=== PATIENT | female | born 1975 | race Caucasian/White ===

== ENCOUNTER 2017-03-03 09:34 | Emergency (ER) | payer SELFPAY ==
[2017-03-03] MEDS ORDERED: Ondansetron 4 MG/2 ML SDV IV ONE (09:35)
[2017-03-03 13:43] LABS: CHLORIDE,CL 102 mmol/L (101-111); SODIUM,NA 135 mmol/L (135-145)
== END 2017-03-03 11:41 ==
LOC: DL.ED 09:34
DX: K52.9 Noninfective gastroenteritis and colitis, unspecified (principal)
CPT/HCPCS: 36415; 80053; 81001; 82150; 83690; 85025; 87804; 96361; 96374; 99284; J2405

== ENCOUNTER 2025-01-03 00:50 | Emergency (ER) | payer BC ==
[2025-01-03] MEDS: Ondansetron 4 MG Tab.DIS PO ONE (01:19)
[2025-01-03 01:26] LABS: BASOPHILS PERCENT AUTO 0.3 % (0.0-1.0); EOSINOPHILS PERCENT AUTO 1.7 % (1.0-3.0); LYMPHOCYTES PERCENT AUTO 22.9 % (20.5-50.1); MONOCYTES PERCENT AUTO 7.1 % (2-8); NEUTROPHILS PERCENT AUTO 68.0 % (42.2-75.2); PLATELET COUNT,PLT 323 10^3/uL (150-450); RED BLOOD CELL COUNT 4.76 10^6/uL (4.2-5.4); WHITE BLOOD CELL COUNT,WBC 15.0 10^3/uL (5.0-10.0)
[2025-01-03 01:28] LABS: APPEARANCE,URINE CLOUDY (CLEAR); GLUCOSE,URINE NEGATIVE (NEGATIVE); OCCULT BLOOD,URINE MODERATE (NEGATIVE)
[2025-01-03 01:36] LABS: SQUAMOUS EPITHELIAL CELLS,UR FEW /HPF (NOT SEEN)
[2025-01-03 01:43] LABS: A/G RATIO 1.0; ALANINE AMINOTRANSFERASE,ALT 23.0 U/L (14-59); ASPARTATE AMNIOTRANSFERASE,AST 12.0 U/L (15-37); BILIRUBIN TOTAL 0.3 mg/dL (0.2-1.0); BLOOD UREA NITROGEN,BUN 8.0 mg/dL (7-18); CARBON DIOXIDE,CO2 29.0 mmol/L (21-32); CHLORIDE,CL 105.0 mmol/L (98-107); CREATININE 0.62 mg/dL (0.55-1.02); EST CRCL DRUG DOSING (CG) 84.65 mL/min; GLUCOSE RANDOM 103.0 mg/dL (70-99); POTASSIUM,K 3.6 mmol/L (3.5-5.1); PROTEIN TOTAL,TP 7.2 g/dL (6.4-8.2); SODIUM,NA 142.0 mmol/L (136-145)
[2025-01-03 01:44] LABS: ESTIMATED GFR 110.0 mL/min (>=60)
[2025-01-03] MEDS ORDERED: cefTRIAXone 1 GM, Lidocaine 1% 2.1 ML IM ONE (01:52)
== END 2025-01-03 02:15 | disposition home or self-care (01) ==
LOC: DL.ED 00:50
DX: K52.9 Noninfective gastroenteritis and colitis, unspecified (principal); N30.00 Acute cystitis without hematuria; Z88.5 Allergy status to narcotic agent; Z79.899 Other long term (current) drug therapy; Z88.8 Allergy status to other drugs, medicaments and biological substances
CPT/HCPCS: 36415; 74019; 80053; 81001; 83735; 85025; 87086; 87088; 87186; 96374; 99284; A9270; J0696

== ENCOUNTER 2025-02-23 06:22 | Emergency (ER) | payer BC ==
[2025-02-23] MEDS: Dexamethasone 4 MG/ML SDV PO ONE (06:45)
[2025-02-23] MEDS: Ondansetron 4 MG Tab.DIS PO ONE (06:46)
[2025-02-23] MEDS: Ketorolac 30 MG/ML SDV IM ONE (07:10)
== END 2025-02-23 08:30 | disposition home or self-care (01) ==
LOC: DL.ED 06:22
DX: K08.89 Other specified disorders of teeth and supporting structures (principal); R42 Dizziness and giddiness; H69.82 Other specified disorders of Eustachian tube, left ear; I10 Essential (primary) hypertension; Z79.899 Other long term (current) drug therapy; Z88.5 Allergy status to narcotic agent; Z88.8 Allergy status to other drugs, medicaments and biological substances; Z88.6 Allergy status to analgesic agent
CPT/HCPCS: 96372; 99283; A9270-GY; J1100; J1885